=== PATIENT | male | born 1950 | race Caucasian/White ===

== ENCOUNTER → 2019-01-01 | Outpatient (CLI) | payer MEDICARE ==
--- NOTE | 2019-01-01 12:17 | P.STRESS ---
- Stress Test Note Stress Test Results/Findings: Exam Performed: stress test Exam Date: 01/01/19 Reason for Exam: Shortness of breath Height: 5 ft 6 in Weight: 88.451 kg Protocol: Luis Stage: 3 Duration of Exercise: 9:00 Resting Heart Rate: 66 Resting Blood Pressure: 141/76 Maximum Achieved Heart Rate: 140 Maximum Achieved Blood Pressure: 222/80 85% PMHR: 131 100% PMHR: 154 METS: 10.1 Technologist Comment: Stress Test Results/Findings: This is a 68-year-old gentleman with history of hypertension, hypercholesterolemia, being evaluated with symptoms of shortness of breath on exertion. Stress data: Baseline EKG showed sinus rhythm with HI interval and QRS duration. Blood pressure at rest is 141/76 with pulse rate of 66. Patient walked on the Luis protocol for 9 minutes achieving a maximal heart rate of 140 with a blood pressure of 222/80. EKGs taken during and after the exercise did not reveal any changes to suggest ischemia. Final impression #1. Negative stress test #2. Good exercise capacity #3. Patient did not experience any chest pain #4. No arrhythmias noted.
--- NOTE | 2019-01-01 13:05 | EST ---
Stress Test Results/Findings: Exam Performed: stress test Exam Date: 01/01/19 Reason for Exam: Shortness of breath Height: 5 ft 6 in Weight: 88.451 kg Protocol: Luis Stage: 3 Duration of Exercise: 9:00 Resting Heart Rate: 66 Resting Blood Pressure: 141/76 Maximum Achieved Heart Rate: 140 Maximum Achieved Blood Pressure: 222/80 85% PMHR: 131 100% PMHR: 154 METS: 10.1 Technologist Comment: Stress Test Results/Findings: This is a 68-year-old gentleman with history of hypertension, hypercholesterolemia, being evaluated with symptoms of shortness of breath on exertion. Stress data: Baseline EKG showed sinus rhythm with IL interval and QRS duration. Blood pressure at rest is 141/76 with pulse rate of 66. Patient walked on the Luis protocol for 9 minutes achieving a maximal heart rate of 140 with a blood pressure of 222/80. EKGs taken during and after the exercise did not reveal any changes to suggest ischemia. Final impression #1. Negative stress test #2. Good exercise capacity #3. Patient did not experience any chest pain #4. No arrhythmias noted. MTDD
--- NOTE | 2019-01-01 13:19 | ECHOF ---
Referral Reason:I10 Essential (primary) hypertension MEASUREMENTS -------- HEIGHT: 167.6 cm WEIGHT: 88.5 kg BP: 141/76 RVIDd: 3.3 cm (< 3.3) IVSd: 1.3 cm (0.6 - 1.1) LVIDd: 4.3 cm (3.9 - 5.3) LVPWd: 1.1 cm (0.6 - 1.1) IVSs: 1.7 cm LVIDs: 2.7 cm LVPWs: 1.6 cm LA Diam: 3.2 cm (2.7 - 3.8) LAESV Index (A-L): 20.35 ml/m Ao Diam: 3.1 cm (2.0 - 3.7) AV Cusp: 2.3 cm (1.5 - 2.6) MV EXCURSION: 18.547 mm (> 18.000) MV EF SLOPE: 93 mm/s (70 - 150) EPSS: 0.6 cm MV E Moises: 0.64 m/s MV DecT: 270 ms MV A Moises: 0.76 m/s MV E/A Ratio: 0.84 FINDINGS -------- Sinus rhythm. This was a technically good study. The left ventricular size is normal. There is mild concentric left ventricular hypertrophy. Overa ll left ventricular systolic function is normal with, an EF between 60 - 65 %. The right ventricle is mildly enlarged. Normal LA size by volume 22+/-6 ml/m2. The right atrium is normal in size. There is mild aortic valve sclerosis. Trace amount of aortic regurgitation. The mitral valve is normal. The tricuspid valve appears structurally normal. Trace/mild (physiologic) pulmonic regurgitation. The aortic root size is normal. Normal inferior vena cava with normal inspiratory collapse consistent with estimated right atrial pre ssure of 5 mmHg. There is no pericardial effusion. CONCLUSIONS -------- 1. Sinus rhythm. 2. This was a technically good study. 3. The left ventricular size is normal. 4. There is mild concentric left ventricular hypertrophy. 5. Overall left ventricular systolic function is normal with, an EF between 60 - 65 %. 6. The right ventricle is mildly enlarged. 7. Normal LA size by volume 22+/-6 ml/m2. 8. The right atrium is normal in size. 9. There is mild aortic valve sclerosis. 10. Trace amount of aortic regurgitation. 11. The mitral valve is normal. 12. The tricuspid valve appears structurally normal. 13. Trace/mild (physiologic) pulmonic regurgitation. 14. The aortic root size is normal. 15. Normal inferior vena cava with normal inspiratory collapse consistent with estimated right atrial pressure of 5 mmHg. 16. There is no pericardial effusion. ASSEMBLY INSPECTOR: Glenna Jernigan RDCS
== END | disposition home or self-care (01) ==
LOC: RADNMMAIN 10:34
PROVIDERS: ATTEND Internal Medicine
DX: I10 Essential (primary) hypertension (principal)
CPT/HCPCS: 93017; 93306

== ENCOUNTER → 2019-03-14 | Outpatient (CLI) | payer MEDICARE ==
--- NOTE | 2019-03-14 15:28 | XR ---
EXAM TYPE: LUMBAR SPINE X RAY SERIES COMPARISON: NONE HISTORY: NUMBNESS IN RT LOWER LEG TECHNIQUE: 4 views are submitted. FINDINGS: Alignment is anatomic. The pedicles are intact. The transverse processes are intact. There is no s pondylolysis or spondylolisthesis. Diffuse osteopenia. Bilateral facet arthropathy. Vacuum disc L2-L 3. Narrowing of the L5-S1 disc space noted. IMPRESSION: 1. Vacuum disc at L2-L3 with hypertrophic spurring compatible severe degenerative disc disease. 2. Facet arthropathy L3-S1. 3. Degenerative disc disease L5-S1.
== END | disposition home or self-care (01) ==
LOC: RADXRYALE 15:04
PROVIDERS: ATTEND Internal Medicine
DX: M51.17 Intervertebral disc disorders with radiculopathy, lumbosacral region (principal); M46.97 Unspecified inflammatory spondylopathy, lumbosacral region; M46.06 Spinal enthesopathy, lumbar region
CPT/HCPCS: 72110

== ENCOUNTER → 2023-01-30 | Outpatient (CLI) | payer MEDICARE ==
[2023-01-30 13:08] LABS: INR 0.9 (<1.2); Partial Thromboplastin Time 22.7 sec (22.0-30.0)
[2023-01-30 16:01] LABS: Appearance,Urine Clear (Clear); Bilirubin,Urine Negative (Negative); Blood,Urine Negative (Negative); Color,Urine Yellow (Yellow); Ketones,Urine Negative (Negative); Nitrite,Urine Negative (Negative); Specific Gravity,Urine 1.008 (1.001-1.030); Urobilinogen,Urine 0.2 (0.2,1.0)
[2023-01-30 16:06] LABS: Albumin 4.4 g/dL (3.8-4.9); Albumin/Globulin Ratio 1.81 (1.60-3.17); Anion Gap 11.2 mmol/L (10.00-18.00); BUN/Creat Ratio 13.61 Ratio (12.00-20.00); Calcium 9.4 mg/dL (8.7-10.3); Carbon Dioxide 26.6 mmol/L (20.0-27.5); Globulin 2.4 g/dL (1.6-3.3); Non-African American GFR(CKD) 80.3 (60.0-200.0); Potassium 4.4 mmol/L (3.5-5.5); Total Bilirubin 0.6 mg/dL (0.30-1.20); Total Protein 6.8 g/dL (6.2-8.2)
[2023-01-30 17:07] LABS: HGB 14.9 g/dL (13.0-17.0); MCH 29.3 pg (27.0-32.0); MCHC 33.1 g/dL (32.0-37.0); MCV 88.4 fL (80.0-97.0); Mean Platelet Volume 8.9 fL (9.5-12.2); NRBC Per 100 WBC 0 /100 WBCS (0.0-0.0); Platelet Count 243 X 10*3/uL (140-440); RBC 5.09 X 10*6/uL (4.40-5.60); WBC 7.62 X 10*3/uL (4.50-10.00)
== END | disposition home or self-care (01) ==
LOC: LABPAT 11:18
PROVIDERS: ATTEND Orthopaedic Surgery
DX: Z01.812 Encounter for preprocedural laboratory examination (principal); M17.11 Unilateral primary osteoarthritis, right knee
CPT/HCPCS: 80053; 81003; 85027; 85610; 85730; 87070

== ENCOUNTER 2023-02-10 05:35 | Day surgery (SDC) | payer OTHER, MEDICARE ==
[2023-02-07 12:46] VITALS: BMI 31.4
[~2023-02-10 05:35] MED LIST: DEXAMETHASONE SOD PHOSPHATE 4 MG/ML 1 ML VIAL IV ONE; HYDROmorphone 0.5 MG/0.5 ML SYRINGE IVP PRN; LACTATED RINGERS 1,000 ML IV SCH; LIDOCAINE 1% (10MG/ML) FOR IV START INTRADERMA PRN; MIDAZOLAM 2 MG/2 ML VIAL IV PRN; ONDANSETRON 4 MG/2 ML VIAL IVP ONE; ROPIVACAINE/EPI/CLONIDINE/KET 50 ML SYRINGE MISCELLANE PRN
[2023-02-10] MEDS ORDERED: DEXAMETHASONE SOD PHOSPHATE 10 MG/ML 1 ML VIAL IV PRN (06:00)
[2023-02-10] MEDS ORDERED: ONDANSETRON 4 MG/2 ML VIAL IVP PRN (06:00)
[2023-02-10] MEDS ORDERED: KETOROLAC 15 MG/ML 1 ML VIAL IVP PRN (06:00)
[2023-02-10] MEDS ORDERED: FAMOTIDINE 20 MG/2 ML VIAL IVP PRN (06:00)
[2023-02-10] MEDS ORDERED: TRANEXAMIC ACID IN NACL,ISO-OS 1,000 MG in SALINE 1 100ML.BAG IV PRN (06:00)
[2023-02-10] MEDS ORDERED: TRANEXAMIC ACID IN NACL,ISO-OS 1,000 MG in SALINE 1 100ML.BAG IVPB PRN (06:00)
[2023-02-10] MEDS ORDERED: ACETAMINOPHEN TAB 500 MG TAB PO PRN (06:00)
[2023-02-10] MEDS ORDERED: DOCUSATE 100 MG CAP PO PRN (06:00)
[2023-02-10] MEDS ORDERED: oxyCODONE ER 10 MG TAB.ER.12H PO PRN (06:00)
[2023-02-10] MEDS ORDERED: MIDAZOLAM 2 MG/2 ML VIAL IVP ONE (06:39)
[2023-02-10] MEDS ORDERED: fentaNYL (PF) 50 MCG/ML 2 ML AMP IVP ONE (06:39)
[2023-02-10] MEDS ORDERED: SUCCINYLCHOLINE CHLORIDE 200 MG/10 ML VIAL IV ONE (06:53)
[2023-02-10] MEDS ORDERED: MIDAZOLAM 2 MG/2 ML VIAL ONE (06:53)
[2023-02-10] MEDS ORDERED: TRANEXAMIC ACID IN NACL,ISO-OS 1,000 MG/100 ML BAG ONE (06:53)
[2023-02-10] MEDS ORDERED: fentaNYL (PF) 50 MCG/ML 2 ML AMP ONE (06:53)
[2023-02-10] MEDS ORDERED: PROPOFOL 10 MG/ML 20 ML VIAL IV ONE (06:53)
[2023-02-10] MEDS ORDERED: GLYCOPYRROLATE 0.2 MG/ML 2 ML VIAL ONE (06:53)
[2023-02-10] MEDS ORDERED: ROCURONIUM 10 MG/ML (5 ML VIAL) IV ONE (06:53)
[2023-02-10] MEDS ORDERED: NEOSTIGMINE 1 MG/ML 10 ML VIAL ONE (06:53)
[2023-02-10] MEDS ORDERED: ePHEDrine 50 MG/ML 1 ML VIAL ONE (06:53)
[2023-02-10] MEDS ORDERED: LIDOCAINE 2% INJ 20 MG/ML (2 ML VIAL) ONE (06:53)
[2023-02-10] MEDS ORDERED: ROPIVACAINE 5 MG/ML 30 ML VIAL ONE (06:54)
[2023-02-10] MEDS ORDERED: SODIUM CHLORIDE 0.9% (PF) 10 ML VIAL ONE (06:54)
[2023-02-10] MEDS ORDERED: SODIUM CHLORIDE 0.9% IRRIGATIO 3,000 ML IRRIGATION ONE (07:48)
--- NOTE | 2023-02-10 09:21 | P.OP ---
Date of Procedure: 02/10/23 Preoperative Diagnosis: Right knee medial compartment arthritis Postoperative Diagnosis: Same Procedure(s) Performed: Right knee medial unicompartmental knee arthroplasty Implants: 1. Fahad Restoris MCK Femoral Component Size #4 2. Fahad Restortic MCK Tibial Component Size #4 3. Fahad Uni X3 Poly Size#4, 8-mm Anesthesia: GETA, regional Surgeon: Raza Grullon Field Care Advocate #1: Arnav Pablo Estimated Blood Loss (ml): 50 IV fluids (ml): 1,100 Pathology: none sent Condition: stable Disposition: PACU Indications for Procedure: I met with the patient preoperatively in the office setting and discussed treatment of their symptomatic knee arthritis. The patient has isolated pain over the medial compartment and has imaging confirming isolated medial compartment arthritis. We discussed the pros and cons of a partial versus total knee replacement. Based on the patient's imaging and clinical exam I think that there are good candidate for a partial medial knee replacement. We discussed the benefits of this compared to conventional total knee replacement including faster recovery and a more normal feeling knee. We discussed the limitations in a partial knee replacement particularly progression of arthritis in the patellofemoral and lateral compartment. The patient understood this and agreed to proceed with a partial knee replacement. I discussed the potential risks and complications at length and gave them ample time to ask questions. Risks discussed included: risks from anesthesia, superficial site surgical infection, acute and/or chronic periprosthetic joint infection, delayed wound healing, drainage, wound necrosis, instability, stiffness, stiffness requiring manipulation and/or revision surgery, progression of arthritis in the patellofemoral and lateral compartment, damage to local blood vessels or nerves, aseptic loosening of the implants, extensor mechanism issues including disruption, patellar maltracking, avascular necrosis etc., continued or worsened knee pain, generalized dissatisfaction with surgical outcome, need for revision surgery, an inability to regain preinjury level of function, DVT, PE, other medical complications, and possibly loss of life or limb. The patient voiced their understanding that while these are the most common complications other less common complications are possible. They provided both their verbal and written consent to go forward with surgery. Operative Findings: After making the medial parapatellar arthrotomy on inspection of the knee there was full-thickness cartilage loss of the medial femoral condyle and medial tibial plateau. The lateral compartment had intact cartilage and no degenerative changes. The femoral trochlea was intact without cartilage degeneration. There was mild grade 2 arthritic changes in the medial facet of the patella. The ACL and PCL were intact. Description of Procedure: The patient was identified in preoperative holding and the correct operative extremity was verified and marked with a marker. I reviewed the consent form with the patient at length. All of their questions were answered. The patient was given a block by anesthesia. They were then brought back to the operating room. They were transferred onto the operating room table where a general anesthetic, preoperative antibiotics, and tranexamic acid were administered by anesthesia. A tourniquet was applied to the proximal aspect of the operative extremity. The contralateral extremity was padded under the heel and secured to the operating room table with a nonsterile blue towel and tape. The ipsilateral arm was carefully draped across the patient's chest and secured with a pillow and foam. A post was applied over the lateral aspect of the ipsilateral thigh a nd a bolster was placed under the ipsilateral foot. I verified that the operative extremity was stable and the knee was flexed to 90. The operative extremity was then placed in a leg sun, nonsterile drapes were applied, and the extremity was prepped and draped sterilely in the standard sterile fashion. Prior to starting surgery timeout was performed identifying the correct patient, operative extremity, and procedure. The leg was then elevated, exsanguinated with an Esmarch bandage, and the tourniquet was inflated. An anterior midline incision was made sharply with a scalpel. Once I had dissected deep to the superficial fascial layer medial and lateral flaps were elevated. A medial parapatellar arthrotomy was created taking care to not inadvertently damaged cartilage in the femoral trochlea since a partial medial compartmental arthroplasty was anticipated. Upon opening the knee joint there was severe arthritic changes in the medial compartment, but the patellofemoral and lateral compartment were free from arthritic changes. Having confirmed isolated medial compartment arthritis I proceeded to perform a partial medial compartment arthroplasty. The anterior horn of the medial meniscus was sharply released and a limited medial release was performed around the posterior medial corner of the knee to facilitate retractor placement. A small portion of the fat pad was excised with electrocautery just to allow visualization. The ACL and PCL were probed and found to be intact. 4 mm pins were then placed within the incision in the medial distal femur and proximal tibia. Arrays were applied to the pins and I verified they were completely tightened. The knee was then registered with the [employer] robot and manipulations in implant position were made to balance the knee and opitmize implant position. Using the [employer] robotic saw and david all cuts were made in accordance with our plan. All bony fragments were removed. Local anesthetic was then infiltrated around the joint capsule. Trial implants were then placed within the knee. Range of motion and collateral ligament tension was then evaluated. Once the knee was felt to be appropriately balanced the Fahad pins were removed. With the trial components in place, the patella tracked midline. All trial components were then removed from the knee. The knee was thoroughly irrigated with pulsatile lavage. Cement was prepared via vacuum mixing in a bowl on the back table. I then hand pressurized cement into the femur and tibia and placed the implants beginning with the tibial base tray, femoral component, and finally the poly liner. All extruded cement was removed including from the pin sites. Once the cement had hardened the knee was evaluated one final time with the final polyethylene liner in plac e. The knee had full extension and flexion and felt stable to varus and valgus stress throughout the arc of motion. The tourniquet was released and with the tourniquet down the patella tracked midline. All bleeders were controlled with electrocautery. The knee was thoroughly irrigated using 3 L of sterile saline and pulsatile lavage. The extensor mechanism was then reapproximated using pop off Vicryl sutures followed by a running barbed suture. The knee was then closed in layers with a 0 strata fix for the deep fascial layer, 2-0 strata fix for the superficial subcutaneous layer and Monocryl and Steri-Strips for the skin. A sterile dressing was applied. I verified that all instrument, sponge, and sharp counts were correct. The patient was then transferred off the operating room table, extubated, and brought to recovery having tolerated the procedure well. Arnav Pablo PA-C was required as a skilled anesthetic assistant due to the complexity of the procedure for patient positioning, draping, retraction, placement of hardware, and closure of wound. PLAN: The patient can weight-bear as tolerated on the operative extremity. DVT prophylaxis with aspirin 81 mg twice a day based on preoperative risk stratification. The patient is going to attempt to leave as an outpatient. They can be discharged as long as they passed physical therapy and her pain is controlled. Follow-up in the office in 2 weeks for wound check and x-rays of the knee including an AP and lateral.
[2023-02-10 09:22] VITALS: TEMP 97.8
--- NOTE | 2023-02-10 09:24 | P.ANPRN ---
Procedure Note - Anesthesia - Nerve Block Performed Right Adductor Canal Single Time Out Performed: Yes (0638) Date of Procedure: 02/10/23 Procedure Start Time: 06:39 Procedure Stop Time: 06:42 Location of Patient: PreOp Indication: Acute Post-Operative Pain, Requested by Surgeon Specifically requested for management of pain by DrSisi: Raza Grullon Sedation Type: Sedate with meaningful contact maintained Preparation: Sterile Prep Position: Supine Catheter: None Needle Types: Pajunk Needle Gauge: 21 Ultrasound used to visualize needle placement: Yes Ultrasound used to observe medication spread: Yes Injectate: 0.5% Ropivacaine (see comment for volume) (15cc + 5cc nacl pf) Blood Aspirated: No Pain Paresthesia on Injection Noted: No Resistance on Injection: Normal Image Stored and Saved: Yes Events: Uneventful and Well Tolerated
--- NOTE | 2023-02-10 09:25 | P.ANPRN ---
Procedure Note - Anesthesia - Nerve Block Performed Right iPack Single Time Out Performed: Yes (0638) Date of Procedure: 02/10/23 Procedure Start Time: 06:43 Procedure Stop Time: 06:47 Location of Patient: PreOp Indication: Acute Post-Operative Pain, Requested by Surgeon Specifically requested for management of pain by DrSisi: Raza Grullon Sedation Type: Sedate with meaningful contact maintained Preparation: Sterile Prep Position: Supine Catheter: None Needle Types: Pajunk Needle Gauge: 21 Ultrasound used to visualize needle placement: Yes Ultrasound used to observe medication spread: Yes Injectate: 0.5% Ropivacaine (see comment for volume) (15cc + 5cc nacl pf) Blood Aspirated: No Pain Paresthesia on Injection Noted: No Resistance on Injection: Normal Image Stored and Saved: Yes Events: Uneventful and Well Tolerated
--- NOTE | 2023-02-10 09:42 | XR ---
EXAMINATION TYPE: XR knee limited RT DATE OF EXAM: 02/10/2023 9:38 AM INDICATION: Patient age:Male; 72 years old; Reason for study: post op; PHH. COMPARISON: None. TECHNIQUE: The Right knee(s) was examined in AP and crosstable lateral projections. FINDINGS: Postsurgical changes from right knee medial hemiarthroplasty with distal femoral and proxim al tibial components. Hardware appears intact with appropriate alignment. There is associated soft ti ssue gas and edema. No acute fracture or dislocation. IMPRESSION: Post surgical changes from right knee medial hemiarthroplasty. Hardware appears intact with appropria te alignment.
[2023-02-10] MEDS ORDERED: LACTATED RINGERS 1,000 ML IV ONE (10:25)
[2023-02-10 12:24] VITALS: RESP 18
[2023-02-10 13:24] VITALS: BP 147/68; PULSE 60
== END 2023-02-10 13:47 | disposition home health service (06) ==
LOC: OR 05:35
PROVIDERS: ATTEND Orthopaedic Surgery
DX: M17.11 Unilateral primary osteoarthritis, right knee (principal); G89.18 Other acute postprocedural pain; I10 Essential (primary) hypertension; M23.303 Other meniscus derangements, unspecified medial meniscus, right knee; M23.300 Other meniscus derangements, unspecified lateral meniscus, right knee; Z79.899 Other long term (current) drug therapy
CPT/HCPCS: 97161; 64447; 64999; 73560; 27446; C1776; C1713; J2250; J0330; J1100; J2710; J0690; J2405; J3010; J1885; J2704; J2001; 88300